=== PATIENT | male | born 1970 | race Caucasian/White ===

== ENCOUNTER 2022-03-04 07:16 | Day surgery (SDC) | payer BC ==
[2022-03-02 13:18] VITALS: BMI 45.1
== END 2022-03-04 10:30 | disposition home or self-care (01) ==
LOC: SDC 07:16
PROVIDERS: ATTEND Internal Medicine Gastroenterology
PROC: 0DBN8ZX Excision of Sigmoid Colon, Via Natural or Artificial Opening Endoscopic, Diagnostic (ICD-10-PCS; principal; 2022-03-04)
DX: Z12.11 Encounter for screening for malignant neoplasm of colon (principal); D12.5 Benign neoplasm of sigmoid colon; K57.30 Diverticulosis of large intestine without perforation or abscess without bleeding
CPT/HCPCS: 88305; C1776

== ENCOUNTER 2023-04-12 13:04 | Inpatient (IN) | payer BC ==
[2023-04-12] MEDS ORDERED: Morphine 2 MG/ML VIAL SLOW IVP PRN (14:45)
[2023-04-12] MEDS ORDERED: Ondansetron PF 4 MG/2 ML Vial IVP PRN (14:46)
[2023-04-12] MEDS: Lactated Ringer's 1,000 ML IV SCH ×2 (16:03→22:15)
[2023-04-12] MEDS ORDERED: Docusate 100 MG CAP PO PRN (16:29)
[2023-04-12] MEDS ORDERED: Acetaminophen 325 MG TAB PO PRN (16:29)
[2023-04-12] MEDS ORDERED: Acetaminophen 650 MG Suppository PR PRN (16:29)
[2023-04-12] MEDS ORDERED: Ondansetron ODT 4 MG TAB PO PRN (16:29)
[2023-04-12] MEDS ORDERED: Electrolyte Replacement Protocol 1 EACH FS SCH (16:30)
[2023-04-12] MEDS ORDERED: Polyethylene Glycol 3350 17 GM Packet PO PRN (16:33)
[2023-04-12] MEDS ORDERED: fentaNYL PF 100 MCG/2 ML SYRINGE ONE (16:55)
[2023-04-12] MEDS ORDERED: Midazolam HCl 2 mg/2 ml Vial ONE (16:55)
[2023-04-12] MEDS ORDERED: Iopamidol 15 ML ONE (17:02)
[2023-04-12 17:56] VITALS: BMI 46.0
[2023-04-12] MEDS ORDERED: Dexamethasone 20 MG/5 ML VIAL ONE (17:58)
[2023-04-12] MEDS ORDERED: PROPOFOL 200 MG/20 ML VIAL ONE (17:58)
[2023-04-12] MEDS ORDERED: Ondansetron PF 4 MG/2 ML Vial ONE (17:58)
[2023-04-12] MEDS ORDERED: Lidocaine 1% PF 5 ML VIAL ONE (17:58)
[2023-04-12] MEDS ORDERED: LevoFLOXacin 500 mg/D5W 100 ML BAG ONE (17:59)
[2023-04-12] MEDS: hydrALAZINE 20 MG/ML VIAL SLOW IVP PRN (19:46)
[2023-04-12] MEDS ORDERED: LevoFLOXacin 500 mg/D5W 500 MG in Premix Bag 1 BAG IVPB SCH (20:15)
[2023-04-13 04:55] LABS: #Monocytes 0.4 thou/uL (0.11-0.59); #Neutrophils 7.7 thou/uL (1.40-6.50); %Basophils 0.2 % (0.0-1.0); %Eosinophils 0.1 % (0.0-10.0); %Lymphocytes 10.2 % (21.0-51.0); %Monocytes 4.7 % (0.0-10.0); %Neutrophils 83.8 % (42.0-75.0); Hemoglobin 14.9 g/dL (14.0-18.0); Mean Corpuscular HGB CONC 32.6 g/dL (32.0-36.0); Mean Corpuscular Volume 92.1 fl (78.0-98.0); Mean Platelet Volume 12.1 fL (7.4-10.4); Platelet Count 188 10x3/uL (130-400); RBC Distribution Width 13.3 % (11.5-14.5); Red Blood Cell (RBC) Count 4.96 mill/uL (4.70-6.10); White Blood Cell (WBC) Count 9.2 10x3/uL (4.8-10.8)
[2023-04-13 05:15] LABS: Anion Gap 15 mmol/L (10-20); BUN (Urea Nitrogen) 41 mg/dL (8.4-25.7); Calc. Creatinine Clearance 44 mL/min (70-130); Calcium 9.5 mg/dL (7.8-10.44); Carbon Dioxide 23 mmol/L (22-29); Chloride 107 mmol/L (98-107); Estimated GFR 17; Glucose 108 mg/dL (70-105); Sodium 140 mmol/L (136-145)
[2023-04-13] MEDS: Lactated Ringer's 1,000 ML IV SCH (18:13)
[2023-04-13] MEDS ORDERED: diphenhydrAMINE 50 MG CAP PO PRN (19:17)
[2023-04-13] MEDS ORDERED: Melatonin 3 MG TAB PO PRN (20:36)
[2023-04-13] MEDS: hydrALAZINE 20 MG/ML VIAL SLOW IVP PRN (20:57)
[2023-04-14 09:07] LABS: #Eosinphils 0.3 thou/uL (0.0-0.7); #Monocytes 0.7 thou/uL (0.11-0.59); #Neutrophils 5.2 thou/uL (1.40-6.50); %Basophils 0.3 % (0.0-1.0); %Eosinophils 3.2 % (0.0-10.0); %Monocytes 8.3 % (0.0-10.0); %Neutrophils 65.7 % (42.0-75.0); Hemoglobin 15.2 g/dL (14.0-18.0); Mean Corpuscular HGB CONC 32.5 g/dL (32.0-36.0); Mean Corpuscular Volume 92.3 fl (78.0-98.0); Mean Platelet Volume 11.9 fL (7.4-10.4); Platelet Count 230 10x3/uL (130-400); RBC Distribution Width 13.4 % (11.5-14.5); Red Blood Cell (RBC) Count 5.07 mill/uL (4.70-6.10); White Blood Cell (WBC) Count 7.8 10x3/uL (4.8-10.8)
[2023-04-14 09:28] LABS: Anion Gap 12 mmol/L (10-20); BUN (Urea Nitrogen) 37 mg/dL (8.4-25.7); Calc. Creatinine Clearance 37 mL/min (70-130); Carbon Dioxide 28 mmol/L (22-29); Chloride 108 mmol/L (98-107); Estimated GFR 37; Glucose 100 mg/dL (70-105); Potassium 4.4 mmol/L (3.5-5.1); Sodium 144 mmol/L (136-145)
[2023-04-14 12:32] VITALS: BP 158/98
[2023-04-14 12:45] VITALS: TEMP 98.7
== END 2023-04-14 13:14 | disposition home or self-care (01) | DRG 660 ==
LOC: 2NO 13:04
PROVIDERS: ADMIT Internal Medicine; ATTEND Emergency Medicine
PROC: 0T788DZ Dilation of Bilateral Ureters with Intraluminal Device, Via Natural or Artificial Opening Endoscopic (ICD-10-PCS; principal; 2023-04-12)
PROC: BT141ZZ Fluoroscopy of Kidneys, Ureters and Bladder using Low Osmolar Contrast (ICD-10-PCS; 2023-04-12)
DX: N13.1 Hydronephrosis with ureteral stricture, not elsewhere classified (principal); N20.1 Calculus of ureter; Z68.42 Body mass index [BMI] 45.0-49.9, adult; N17.9 Acute kidney failure, unspecified; G47.33 Obstructive sleep apnea (adult) (pediatric); E66.01 Morbid (severe) obesity due to excess calories; Z79.899 Other long term (current) drug therapy; Z82.49 Family history of ischemic heart disease and other diseases of the circulatory system; Z98.890 Other specified postprocedural states
CPT/HCPCS: 36415; 74420; 80048; 85025; C2617; J0360; J1100; J1956; J2250; J2272; J2405; J2704; J7120; Q9967

== ENCOUNTER 2023-04-26 09:37 | Outpatient (CLI) | payer BC ==
[2023-04-26 10:59] LABS: Bilirubin Neg (Negative); Blood, Urine 250 (Negative); Clarity Slightly Cloudy (Clear); Glucose, Urine (Dipstick) Normal (Negative); Hemoglobin 14.8 g/dL (13.5-17.5); Ketone, Urine Negative (Negative); Leukocyte 25 (Negative); Mean Corpuscular HGB CONC 33.6 g/dL (32.0-36.0); Mean Corpuscular Hemoglobin 29.7 pg (27.0-33.0); Mean Corpuscular Volume 88.4 fl (81.2-95.1); Mean Platelet Volume 12.2 fl (7.4-10.4); Nitrite Negative (Negative); Platelet Count 231 10x3/uL (150-450); Protein, Urine (Dipstick) 100 mg/dl (Neg-Trace); RBC Distribution Width 12.5 % (11.5-14.5); Red Blood Cell (RBC) Count 4.98 10x6/uL (4.32-5.72); Specific Gravity, Urine 1.015 (1.005-1.030); Urobilinogen Normal mg/dL (Less than 2); White Blood Cell (WBC) Count 7.9 10x3/uL (3.5-10.5)
[2023-04-26 11:16] LABS: Bacteria/HPF 1+ HPF (None Seen); RBC/HPF Greater than 50 HPF (0-3); Squamous Epithelial 0-3 HPF (0-3)
[2023-04-26 11:19] LABS: Anion Gap 14 mmol/L (10-20); BUN (Urea Nitrogen) 18 mg/dL (8.4-25.7); Calc. Creatinine Clearance 0 mL/min (70-130); Calcium 9.2 mg/dL (7.8-10.44); Carbon Dioxide 24 mmol/L (22-29); Chloride 106 mmol/L (98-107); Estimated GFR 68; Glucose 93 mg/dL (70-105); Potassium 4.4 mmol/L (3.5-5.1); Sodium 140 mmol/L (136-145)
[2023-04-26 11:20] LABS: INR-International Normal Ratio 1.1; PTT 29.9 sec (22.0-33.0); Prothrombin Time 11.3 sec (9.5-12.1)
== END 2023-04-26 09:38 | disposition home or self-care (01) ==
LOC: LABBT 09:37
PROVIDERS: ATTEND Urology
DX: Z01.818 Encounter for other preprocedural examination (principal); N20.2 Calculus of kidney with calculus of ureter
CPT/HCPCS: 80048; 81001; 85027; 85610; 85730; 87086; 93005; 93010

== ENCOUNTER 2023-05-06 05:59 | Day surgery (SDC) | payer BC ==
[2023-04-26 10:10] VITALS: BMI 45.8
[2023-05-06] MEDS ORDERED: LevoFLOXacin 500 mg/D5W 100 ML BAG ONE ×2 (06:17→07:35)
[2023-05-06] MEDS ORDERED: fentaNYL PF 100 MCG/2 ML SYRINGE ONE (06:26)
[2023-05-06] MEDS ORDERED: SUGAMMADEX SODIUM 200 MG/2 ML VIAL ONE (06:27)
[2023-05-06] MEDS ORDERED: Ketorolac Tromethamine 30 MG/ML VIAL ONE (07:50)
[2023-05-06] MEDS ORDERED: Rocuronium Bromide 10 MG/ML (10ML VIAL) ONE (07:50)
[2023-05-06] MEDS ORDERED: Lidocaine 1% PF 5 ML VIAL ONE (07:50)
[2023-05-06] MEDS ORDERED: Dexamethasone 20 MG/5 ML VIAL ONE (07:50)
[2023-05-06] MEDS ORDERED: Ondansetron PF 4 MG/2 ML Vial ONE (07:50)
[2023-05-06] MEDS ORDERED: PROPOFOL 200 MG/20 ML VIAL ONE (07:50)
[2023-05-06] MEDS ORDERED: Iopamidol 30 ML ONE (08:19)
[2023-05-06] MEDS ORDERED: Phenazopyridine HCl 100 MG TAB ONE (11:36)
[2023-05-06] MEDS ORDERED: Oxybutynin 5 MG TAB ONE (11:36)
== END 2023-05-06 11:51 | disposition home or self-care (01) ==
LOC: SDC 05:59
PROVIDERS: ATTEND Urology
PROC: 0TC68ZZ Extirpation of Matter from Right Ureter, Via Natural or Artificial Opening Endoscopic (ICD-10-PCS; principal; 2023-05-06)
PROC: 0TC08ZZ Extirpation of Matter from Right Kidney, Via Natural or Artificial Opening Endoscopic (ICD-10-PCS; principal; 2023-05-06)
PROC: 0TC78ZZ Extirpation of Matter from Left Ureter, Via Natural or Artificial Opening Endoscopic (ICD-10-PCS; principal; 2023-05-06)
PROC: 0T768DZ Dilation of Right Ureter with Intraluminal Device, Via Natural or Artificial Opening Endoscopic (ICD-10-PCS; principal; 2023-05-06)
PROC: 0TC18ZZ Extirpation of Matter from Left Kidney, Via Natural or Artificial Opening Endoscopic (ICD-10-PCS; principal; 2023-05-06)
DX: N20.2 Calculus of kidney with calculus of ureter (principal); Z79.899 Other long term (current) drug therapy
CPT/HCPCS: 82365; 88300; C1713; C1747; C1769; C2617; J1100; J1885; J1956; J2405; J2704; Q9967